=== PATIENT | female | born 2005 | race Asian ===

== ENCOUNTER 2024-06-28 23:46 | Emergency (ER) | payer SELFPAY ==
[~2024-06-28] VITALS: Ht 165.1 cm; Wt 82.0 kg
[2024-06-28 23:50] VITALS: O2SAT 98
[2024-06-29] MEDS: SODIUM CHLORIDE 0.9% 1,000 ML IV ONE ×2 (00:36→02:55)
[2024-06-29] MEDS: ONDANSETRON HCL 4MG/2ML INJ IV STA (00:41)
[2024-06-29 00:46] LABS: BASOPHILS % 0.2 % (0.0-2.0); EOSINOPHILS % 0.3 % (0.0-5.0); HEMATOCRIT. 37.4 % (36.0-48.0); HEMOGLOBIN. 12.5 g/dL (12.0-16.0); LYMPHOCYTES % 16.4 % (20.0-50.0); MEAN CORPUSCULAR HEMOGLOBIN 28.3 pg (28.0-32.0); MEAN CORPUSCULAR HGB CONC 33.5 g/dL (31.0-37.0); MEAN CORPUSCULAR VOLUME 84.4 fL (81.0-99.0); MEAN PLATELET VOLUME 6.9 fl (7.4-10.4); MONOCYTES % 4.4 % (2.0-8.0); NEUTROPHILS % 78.7 % (40.0-76.0); PLATELET 266 x1000/uL (130-400); RED BLOOD CELL COUNT 4.43 mill/uL (4.2-5.4); RED CELL DISTRIBUTION WIDTH 13.3 % (11.6-14.6); WHITE BLOOD COUNT 15.8 x1000/uL (4.5-11.0)
[2024-06-29 00:53] LABS: BG BASE EXCESS -9.4 mmol/L (-2.0-3.0); BG DEOXYHEMOGLOBIN 3.3 % (0.0-5.0); BG HCO3 ACT 16.3 mmol/L (21.0-28.0); BG METHEMOGLOBIN 0.4 % (0.5-1.5); BG OXYGEN SATURATION 96.7 % (94.0-98.0); BG OXYHEMOGLOBIN 96.3 % (94.0-98.0); BG PCO2 35.4 mmHg (32.0-45.0); BG PH 7.282 (7.350-7.450); BG PO2 100.4 mmHg (83.0-108.0); BG SAMPLE SITE RIGHT RADIAL; BG TOTAL HEMOGLOBIN 14.6 g/dL (12.0-16.0); BG VENT MODE ROOM AIR
[2024-06-29 00:55] LABS: CHLORIDE 108 mEq/L (98-107); POTASSIUM 2.9 mEq/L (3.5-5.1); SODIUM 138 mEq/L (136-145)
[2024-06-29 00:56] LABS: CARBON DIOXIDE 17 mEq/L (21-32)
[2024-06-29 01:01] LABS: GLUCOSE 141 mg/dL (70-105); UREA NITROGEN BLOOD 18 mg/dL (9-23)
[2024-06-29 01:03] LABS: ACETAMINOPHEN < 2 ug/mL (10-30); CREATINE KINASE 99 IU/L (34-145)
[2024-06-29 01:11] LABS: ETHANOL BLOOD 357 mg/dL (<10)
[2024-06-29 01:30] LABS: HCG SCREEN NEGATIVE
[2024-06-29 01:31] LABS: LACTIC ACID 3.9 mmol/L (0.4-2.0)
[2024-06-29] MEDS: KCL 20MEQ/100ML PREMIX 100 ML IV SCH (02:17)
[2024-06-29] MEDS: MAGNESIUM 2 G PREMIX 50 ML IV NR (02:17)
[2024-06-29 02:48] VITALS: TEMP 36.72516
[2024-06-29 04:18] VITALS: BP 116/65; PULSE 145; RESP 30; O2SAT 98
[2024-06-29] MEDS ORDERED: LORAZEPAM 2MG/ML INJ IV NR (05:00)
[2024-06-29 05:49] LABS: CLARITY URINE CLEAR (CLEAR); COLOR URINE YELLOW (YELLOW); GLUCOSE URINE NEGATIVE (NEGATIVE); KETONES URINE TRACE (NEGATIVE); LEUKOCYTE ESTERASE URINE NEGATIVE (NEGATIVE); NITRITE URINE NEGATIVE (NEGATIVE); OCCULT BLOOD URINE NEGATIVE (NEGATIVE); PH URINE 5.5 (4.5-8.0); PROTEIN URINE NEGATIVE (NEGATIVE); SPECIFIC GRAVITY URINE 1.007 (1.005-1.030); UROBILINOGEN URINE 0.2 E.U./dL (0.2-1.0)
[2024-06-29 05:58] LABS: *AMPHETAMINES SCREEN URINE NEGATIVE (NEGATIVE); *BARBITURATES SCREEN URINE NEGATIVE (NEGATIVE); *BENZODIAZEPINES SCREEN URINE NEGATIVE (NEGATIVE); *COCAINE SCREEN URINE NEGATIVE (NEGATIVE); CANNABINOID URINE SCREEN NEGATIVE (NEGATIVE); ECSTASY MDMA SCREEN URINE NEGATIVE (NEGATIVE); METHADONE URINE SCREEN NEGATIVE (NEGATIVE); OPIATES URINE SCREEN NEGATIVE (NEGATIVE); PHENCYCLIDINE URINE SCREEN NEGATIVE (NEGATIVE)
== END 2024-06-29 07:20 | disposition left against medical advice (07) ==
LOC: ER 23:46 → EDBEDREQ 06-29 01:26 → ER 06-29 07:20
DX: T51.0X1A Toxic effect of ethanol, accidental (unintentional), initial encounter (principal); E87.20 Acidosis, unspecified; G93.40 Encephalopathy, unspecified; R41.82 Altered mental status, unspecified; Y90.8 Blood alcohol level of 240 mg/100 ml or more
CPT/HCPCS: 80305; 80048; 81003; 80307; 80329; 80320; 82550; 82962; 84703; 83605; 85025; 36415; 99291; 71045; 70450; 74176; 93005; 96361; 96365; 96375; J3475; J2405; J3480; J7030; G0480

== ENCOUNTER 2024-10-25 16:23 | Emergency (ER) | payer SELFPAY ==
[~2024-10-25] VITALS: Ht 165.1 cm; Wt 70.3 kg
[2024-10-25 16:26] VITALS: O2SAT 98
[2024-10-25 16:27] VITALS: BP 109/80; PULSE 89; RESP 16; TEMP 37.1; O2SAT 98
[2024-10-25] MEDS: CEFTRIAXONE SODIUM 1G VIAL IM ONE (20:15)
[2024-10-25] MEDS: DOXYCYCLINE HYCLATE 100MG CAPSULE PO ONE (20:16)
[2024-10-25 20:33] LABS: CLARITY URINE CLEAR (CLEAR); COLOR URINE YELLOW (YELLOW); GLUCOSE URINE NEGATIVE (NEGATIVE); KETONES URINE NEGATIVE (NEGATIVE); LEUKOCYTE ESTERASE URINE 1+ (NEGATIVE); NITRITE URINE NEGATIVE (NEGATIVE); OCCULT BLOOD URINE 3+ (NEGATIVE); PROTEIN URINE NEGATIVE (NEGATIVE); SPECIFIC GRAVITY URINE 1.015 (1.005-1.030); UROBILINOGEN URINE 0.2 E.U./dL (0.2-1.0)
[2024-10-25 20:36] LABS: BACTERIA URINE TRACE; SQUAMOUS EPITHELIAL CELL URINE FEW /lpf (RARE/1+)
[2024-10-25 20:47] LABS: BASOPHILS % 0.8 % (0.0-2.0); EOSINOPHILS % 1.4 % (0.0-5.0); HEMATOCRIT. 39.3 % (36.0-48.0); HEMOGLOBIN. 13.4 g/dL (12.0-16.0); LYMPHOCYTES % 35.8 % (20.0-50.0); MEAN CORPUSCULAR HEMOGLOBIN 28.9 pg (28.0-32.0); MEAN PLATELET VOLUME 7.2 fl (7.4-10.4); MONOCYTES % 6.2 % (2.0-8.0); NEUTROPHILS % 55.8 % (40.0-76.0); PLATELET 325 x1000/uL (130-400); RED BLOOD CELL COUNT 4.63 mill/uL (4.2-5.4); RED CELL DISTRIBUTION WIDTH 13.1 % (11.6-14.6); WHITE BLOOD COUNT 6.2 x1000/uL (4.5-11.0)
[2024-10-25 20:52] LABS: CHLORIDE 105 mEq/L (98-107); POTASSIUM 3.8 mEq/L (3.5-5.1); SODIUM 138 mEq/L (136-145)
[2024-10-25 20:53] LABS: CALCIUM 9.6 mg/dL (8.7-10.4); CARBON DIOXIDE 28 mEq/L (21-32)
[2024-10-25 20:58] LABS: CREATININE 0.8 mg/dL (0.6-1.0); GLUCOSE 99 mg/dL (70-105); UREA NITROGEN BLOOD 8 mg/dL (9-23)
[2024-10-25 20:59] LABS: B-HCG QUANTITATIVE 8 mIU/mL (<3)
[2024-10-25] MEDS ORDERED: IBUP-2029 MT (22:55)
[2024-10-25] MEDS ORDERED: DOXY100C5 PO (22:56)
[2024-10-28 04:08] LABS: CHLAMYDIA TRACHOMATIS NAA Negative (Negative); NEISSERIA GONORRHOEAE NAA Negative (Negative)
== END 2024-10-25 23:40 | disposition home or self-care (01) ==
LOC: ER 16:36
DX: O26.891 Other specified pregnancy related conditions, first trimester (principal); Z20.2 Contact with and (suspected) exposure to infections with a predominantly sexual mode of transmission; Z3A.00 Weeks of gestation of pregnancy not specified
CPT/HCPCS: 99285; 76801; 87491; 87591; 80048; 81003; 81025; 84702; 85025; 86850; 86900; 86901; 36415; 76817; 96372; J0696

== ENCOUNTER 2025-04-08 19:26 | Emergency (ER) | payer OTHER ==
[~2025-04-08] VITALS: Ht 165.1 cm; Wt 64.0 kg
[~2025-04-08 19:26] MED LIST: DOXY100C5 PO; IBUP-2029 MT
[2025-04-08 19:41] VITALS: O2SAT 100
[2025-04-08 19:44] VITALS: BP 110/78; PULSE 89; RESP 18; TEMP 36.9; O2SAT 100
== END 2025-04-08 20:14 | disposition left against medical advice (07) ==
LOC: ER 19:26
DX: R10.2 Pelvic and perineal pain (principal); R11.0 Nausea; Z53.21 Procedure and treatment not carried out due to patient leaving prior to being seen by health care provider; Z3A.01 Less than 8 weeks gestation of pregnancy